=== PATIENT | male | born 1950 | race Two or more races ===

== ENCOUNTER 2022-10-20 15:03 | Emergency (ER) | payer MEDICARE, MEDICAID ==
[~2022-10-20] VITALS: Ht 165.1 cm; Wt 79.5 kg
[2022-10-20 15:18] VITALS: BP 102/52
[2022-10-20] MEDS ORDERED: TRAZ-252 PO (15:18)
[2022-10-20] MEDS ORDERED: TAMS-13 PO (15:18)
[2022-10-20] MEDS ORDERED: [UNRECOGNIZED DRUG - OTHER] PO (15:18)
[2022-10-20] MEDS ORDERED: cbd TD (15:18)
[2022-10-20] MEDS ORDERED: LISI-893 PO (15:18)
[2022-10-20] MEDS ORDERED: ATOR40TA28 PO (15:18)
[2022-10-20] MEDS ORDERED: ASPI-1450 PO (15:18)
[2022-10-20] MEDS ORDERED: INSLAN SQ (15:18)
[2022-10-20] MEDS ORDERED: CLON-598 PO (15:18)
[2022-10-20] MEDS ORDERED: SILD25 PO (15:18)
[2022-10-20] MEDS ORDERED: SEMA7TAB2 PO (15:18)
[2022-10-20] MEDS ORDERED: KETOROLAC TROMETHAMINE 30 MG/ML VIAL IM ONE (16:15)
[2022-10-20] MEDS ORDERED: IBUP-1492 PO (16:32)
== END 2022-10-20 17:01 | disposition home or self-care (01) ==
LOC: EMS 15:03
DX: M54.12 Radiculopathy, cervical region (principal); F41.9 Anxiety disorder, unspecified; E11.9 Type 2 diabetes mellitus without complications; E78.00 Pure hypercholesterolemia, unspecified; I10 Essential (primary) hypertension
CPT/HCPCS: 99283; 96372; J1885